=== PATIENT | male | born 1990 | race Caucasian/White ===

== ENCOUNTER 2020-11-26 21:45 | Emergency (ER) | payer OTHER, BC ==
[~2020-11-26] VITALS: Ht 193 cm; Wt 113.4 kg
[~2020-11-26 21:45] MED LIST: ALBU.083IS IH; ALBU90OI; AZIT250 PO; CEFD300 PO; CEFP200 PO; CLIN300 PO; CODACE30 PO; FLUSAL1005; FLUSAL2505 IH; HYDACE5 PO; IBUP600 PO; KETO10 PO; MONT10T; NAPR500 PO; PRED20; PRED20 PO; PROACE100 PO; PROM25S PR; RXCODACET PO; RXPROACE PO; [UNRECOGNIZED DRUG - CODE]
[2020-11-26] MEDS ORDERED: IBUP800 PO (23:51)
[2020-11-26] MEDS ORDERED: ACETAMINOPHEN500 MG PO (23:51)
== END 2020-11-27 00:10 | disposition home or self-care (01) ==
LOC: ER 21:45
DX: M25.562 Pain in left knee (principal); M25.531 Pain in right wrist; Z88.0 Allergy status to penicillin; Z88.6 Allergy status to analgesic agent
CPT/HCPCS: 73110; 73564; 99283-25; A9270

== ENCOUNTER 2023-06-22 21:34 | Emergency (ER) | payer BC ==
[~2023-06-22] VITALS: Ht 193 cm; Wt 113.4 kg
[~2023-06-22 21:34] MED LIST changes: +ACETAMINOPHEN500 MG PO; +IBUP800 PO
[2023-06-22 21:53] VITALS: BP 150/104
[2023-06-22 22:16] LABS: BASOPHILS ABSOLUTE AUTO 0.04 K/mm3 (0.00-0.23); BASOPHILS PERCENT AUTO 0 % (0-2); EOSINOPHILS ABSOLUTE AUTO 0.06 K/mm3 (0.00-0.68); EOSINOPHILS PERCENT AUTO 1 % (0-6); Hematocrit 42.8 % (37.0-53.0); Hemoglobin 15.3 g/dL (13.5-17.5); IMMATURE GRAN ABSOLUTE AUTO 0.04 K/mm3 (0.00-0.10); IMMATURE GRAN PERCENT AUTO 0 % (0-1); LYMPHOCYTES ABSOLUTE AUTO 1.01 K/mm3 (0.84-5.20); LYMPHOCYTES PERCENT AUTO 9 % (21-46); MONOCYTES ABSOLUTE AUTO 0.54 K/mm3 (0.16-1.47); MONOCYTES PERCENT AUTO 5 % (4-13); Mean Corpuscular HGB 31.4 pg (26.0-34.0); Mean Corpuscular HGB Conc 35.7 g/dL (31.5-36.5); Mean Corpuscular Volume 88 fL (80-100); Mean Platelet Volume 10.2 fL (9.1-12.4); NEUTROPHILS PERCENT AUTO 85 % (41-73); Platelet Count 290 K/mm3 (150-400); RDW Coefficient Variation 12.6 % (11.7-14.2); RDW Standard Deviation 40.8 fL (35.1-46.3); Red Blood Cell Count 4.87 M/mm3 (4.30-5.90); White Blood Cell Count 11.29 K/mm3 (4.00-11.30)
[2023-06-22 22:37] LABS: Albumin, Blood 4.4 g/dL (3.4-5.0); Albumin/Globulin Ratio 1.2 (0.8-1.8); Bilirubin, Total 1.2 mg/dL (0.1-1.0); Bun/Creatinine Ratio 11.7 (12.0-20.0); Calcium, Blood 9.3 mg/dL (8.5-10.1); Creatinine, Blood 1.11 mg/dL (0.60-1.20); Globulin, Blood 3.6 g/dL (2.2-4.0)
[2023-06-22 22:42] LABS: Influenza A, PCR NEGATIVE (NEGATIVE); Influenza B, PCR NEGATIVE (NEGATIVE); Resp Syncytial Virus, PCR NEGATIVE (NEGATIVE); SARS-Cov-2 (COVID-19) PCR, MMC NEGATIVE (NEGATIVE)
== END 2023-06-22 22:59 | disposition left against medical advice (07) ==
LOC: ER 21:34
PROVIDERS: Student in an Organized Health Care Education/Training Program
DX: R11.2 Nausea with vomiting, unspecified (principal); Z53.21 Procedure and treatment not carried out due to patient leaving prior to being seen by health care provider
CPT/HCPCS: 0241U; 80053; 83690; 85025; 99281